=== PATIENT | female | born 1970 | race Caucasian/White ===

== ENCOUNTER 2020-07-02 09:37 | Outpatient (CLI) | payer OTHER, SELFPAY ==
--- NOTE | ~2020-07-02 | XR_ITS ---
EXAMINATION: XR chest 2V EXAM DATE: 07/02/2020 10:11 INDICATION: Generalized neck pain. Hypertension. TECHNIQUE: Frontal and lateral projections of the chest obtained and reviewed. Comparison is made to prior examination from 10/09/2016. FINDINGS: The lungs are clear. There are no pleural effusions. The cardiomediastinal silhouette is within normal limits. There is no pneumothorax suspected. The bones and soft tissues are unremarkab le. IMPRESSION: No acute cardiopulmonary findings. Reviewed, dictated and finalized at location B. ORATE GIVING MANAGER
--- NOTE | ~2020-07-02 | XR_ITS ---
EXAMINATION: XR_CERV2-3V_CR EXAM DATE: 07/02/2020 10:11 INDICATION: Neck pain. TECHNIQUE: Cervical spine frontal, lateral, lateral swimmers, and open-mouth odontoid projections. There is no prior study for comparison. FINDINGS: There is mild to moderate loss of the C5-6 disc height, mild at C4-5 and 6-7. There is mil d to moderate cervical facet and uncovertebral joint arthropathy. There is mild reversal of the andrea l cervical lordosis which may be positional or spasm. The odontoid process is intact. The lateral ma sses of C1 line up with C2. Prevertebral soft tissue and pre-dens space are within normal limits. IMPRESSION: 1. Mild to moderate cervical spondylosis. 2. Mild reversal normal cervical lordosis could indicate spasm. Reviewed, dictated and finalized at location B. TMENT MAINTENANCE MANAGER
[2020-07-02 09:49] LABS: Basophils Absolute Auto 0.03 K/mm3 (0.00-0.10); Basophils Percent Auto 0.4 % (0.0-1.0); Eosinophils Absolute Auto 0.07 K/mm3 (0.02-0.50); Hematocrit 45.4 % (35.0-49.0); Hemoglobin 15.3 g/dL (12.0-15.0); Immature Granulocyte Absolute 0.01 K/mm3 (0.00-0.00); Immature Granulocyte Percent A 0.1 % (0.0-0.0); Lymphocytes Absolute Auto 1.58 K/mm3 (1.10-4.50); Mean Corpuscular HGB Conc 33.7 g/dL (32.0-36.0); Mean Corpuscular Hemoglobin 33.7 pg (27.0-31.0); Mean Platelet Volume 10.8 fl (9.2-11.8); Monocytes Absolute Auto 0.55 K/mm3 (0.10-0.90); Neutrophils Absolute Auto 4.6 K/mm3 (1.7-7.2); Neutrophils Percent Auto 67.5 % (50.0-70.0); Platelet Count Result 197 K/mm3 (150-420); Red Blood Count 4.54 M/mm3 (4.20-5.40); Red Cell Distribution Width 12.9 % (11.6-14.4); White Blood Count 6.9 K/mm3 (4.8-10.8)
[2020-07-02 09:53] LABS: Add Urine Microscopic? YES; Bilirubin Urine Negative (Negative); Blood Urine 2+ (Negative); Color Urine Yellow (Yellow); Glucose Urine UA Negative (Negative); Ketones Urine Negative (Negative); Leukocyte Esterase Ur Negative (Negative); Nitrate Urine Positive (Negative); Protein Urine Negative (Negative); Specific Grav Ur >= 1.030 (1.010-1.020); Urobilinogen Urine 0.2 mg/dL (0.2-1.0)
[2020-07-02 09:58] LABS: Appearance Urine Other (Clear); Bacteria Urine 3+ /hpf; Squamous Epithelial Cell Urine Few /hpf (Few); WBC Urine 0-3 /hpf (0-3)
[2020-07-02 10:43] LABS: Alanine Aminotransferase 24 U/L (14-59); Albumin Level 3.6 g/dL (3.4-5.0); Alkaline Phosphatase 62 U/L (46-116); Anion Gap 8 mmol/L (8-16); Aspartate Amino Transferase 17 U/L (15-37); Bilirubin,Total 0.7 mg/dL (0.00-1.00); Blood Urea Nitrogen 15 mg/dL (7-18); Calcium 8.6 mg/dL (8.5-10.1); Carbon Dioxide 25 mmol/L (21-32); Chloride 107 mmol/L (98-108); Cholesterol 169 mg/dL (0-200); Estimated Glomerular Filt Rate > 60; Glucose 96 mg/dL (70-99); HDL Direct 54 mg/dL (40-60); LDL Cholesterol Calculated 103 mg/dL (<130); Osmolality Calculated 290 mOsm/kg (285-295); Potassium 4.2 mmol/L (3.5-5.1); Sodium 140 mmol/L (136-145); Total Protein 7.6 g/dL (6.4-8.2); Triglycerides 61 mg/dL (0-150)
== END 2020-07-02 09:38 | disposition home or self-care (01) ==
LOC: CHSLAB 09:41
PROVIDERS: PCP Internal Medicine; Visit Provider Internal Medicine
DX: M54.2 Cervicalgia (principal); I10 Essential (primary) hypertension
CPT/HCPCS: 36415; 71046; 72040; 80053; 80061; 81001; 84443; 85025

== ENCOUNTER 2020-07-04 12:21 | Emergency (ER) | payer OTHER, SELFPAY ==
[2020-07-04 12:21] VITALS: BP 168/94; PULSE 76; RESP 16; TEMP 36.3; O2SAT 98
--- NOTE | 2020-07-04 12:35 | ECG_ITS ---
Measurements Intervals [place] Rate: 67 P: 32 NE: 145 QRS: 2 QRSD: 75 T: 8 QT: 382 QTc: 406 Interpretive Statements SINUS RHYTHM LOW QRS VOLTAGE IN PRECORDIAL LEADS BASELINE ARTIFACT- I, II, AVR, AVF BORDERLINE ECG Electronically Signed On 07-06-2020 8:14:35 RN NEW GRAD by Luis Alves D.O.
[2020-07-04] MEDS: ALPRAZolam (*CRX) 0.5 MG TABLET PO (13:00)
[2020-07-04 13:02] LABS: Basophils Absolute Auto 0.06 K/mm3 (0.00-0.10); Basophils Percent Auto 0.9 % (0.0-1.0); Eosinophils Absolute Auto 0.05 K/mm3 (0.02-0.50); Eosinophils Percent Auto 0.8 % (1.0-6.0); Hematocrit 43.4 % (35.0-49.0); Hemoglobin 14.8 g/dL (12.0-15.0); Immature Granulocyte Absolute 0.02 K/mm3 (0.00-0.00); Immature Granulocyte Percent A 0.3 % (0.0-0.0); Lymphocytes Absolute Auto 1.58 K/mm3 (1.10-4.50); Lymphocytes Percent Auto 24.5 % (18.0-42.0); Mean Corpuscular HGB Conc 34.1 g/dL (32.0-36.0); Mean Corpuscular Hemoglobin 33.9 pg (27.0-31.0); Mean Corpuscular Volume 99.5 fL (78.0-102.0); Mean Platelet Volume 11.2 fl (9.2-11.8); Monocytes Absolute Auto 0.43 K/mm3 (0.10-0.90); Monocytes Percent Auto 6.7 % (2.0-11.0); Neutrophils Absolute Auto 4.3 K/mm3 (1.7-7.2); Neutrophils Percent Auto 66.8 % (50.0-70.0); Platelet Count Result 186 K/mm3 (150-420); Red Blood Count 4.36 M/mm3 (4.20-5.40); Red Cell Distribution Width 12.8 % (11.6-14.4); White Blood Count 6.5 K/mm3 (4.8-10.8)
--- NOTE | 2020-07-04 13:10 | ED.CHESTPAIN ---
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 The patient had a visit with her primary care physician and was started on a steroid tapering pack secondary to pain of her neck secondary to osteoarthritis. Patient was also started on verapamil for high blood pressure but did not take her blood pressure medication. Patient today presents with some chest tightness that is been off and on since earlier this morning with no shortness of breath no diaphoresis no nausea vomiting no radiation of her pain. MD complaint: chest discomfort Onset (ago): hour(s) Timing of current episode: episodic Prior episodes: No Onset: during rest Pain location: left chest Pain radiation: none Severity: mild Quality: tightness Exacerbating factors: stress Context: recent illness Related Data Allergies Allergy/AdvReac Type Severity Reaction Status Date / Time No Known Allergies Allergy Verified 07/04/20 12:35 Review of Systems Review of Systems: All systems reviewed & are unremarkable except as noted in HPI and below PMFSH Past Medical History Medical History HTN (hypertension) Exam Const: General: cooperative, healthy appearing, comfortable, no acute distress, well developed, alert, awake and Physically active HENMT: Head: normal to inspection Ears: hearing grossly normal bilaterally General nose exam: Normal external nose present Face and sinus: normal facial exam Mouth: Yes Normal oral and palatal mucosa present Teeth and gingiva: dentition normal Eyes: General: appearance normal, both eyes and all related structures Eyelids: eyelids normal Conjunctivae: conjunctivae normal Sclera: sclerae normal Neck: Neck: normal visual inspection, full ROM, no lymphadenopathy and no meningeal signs Chest: Chest palpation & inspection: normal inspection of the chest and normal palpation of entire chest wall Resp: Effort & Inspection: normal respiratory effort and able to speak in complete sentences Auscultation: clear to auscultation bilaterally Cardio: Jugular venous distension: no JVD Palpation: normal PMI Rate: regular rate Rhythm: regular rhythm Heart sounds: S1 normal heart sound present and S2 normal heart sound present GI: Inspection: normal to inspection Auscultation: normal bowel sounds Back/Spine/Pelvis: Back: no CVA tenderness Neuro: General: oriented to person, oriented to place, oriented to time, patient oriented x3, gait normal, tone normal and moves all extremities Psych: Appearance: grossly normal and well kempt Mental Status: mental status grossly normal Course Course Emergency Course: during assessment of patient patient says her pain in her chest has subsided and is completely gone patient did receive Xanax and anxiety has improved. Reviewed EKG and lab findings and everything came back within normal limits advised to follow-up with her primary care physician. Vital Signs Vital signs: Vital Signs Temperature 36.3 C L 07/04/20 12:21 Pulse Rate 76 07/04/20 12:21 Respiratory Rate 16 07/04/20 12:21 Blood Pressure 168/94 H 07/04/20 12:21 Pulse Oximetry 98 07/04/20 12:21 Temperature 36.3 C L 07/04/20 12:21 Pulse Rate 76 07/04/20 12:21 Respiratory Rate 16 07/04/20 12:21 Blood Pressure 168/94 H 07/04/20 12:21 Pulse Oximetry 98 07/04/20 12:21 MDM - Chest Pain Lab Data Result diagrams: 07/04/20 12:57 Labs: Lab Results 07/04/20 07/04/20 Range/Units 12:57 12:57 WBC 6.5 (4.8-10.8) K/mm3 RBC 4.36 (4.20-5.40) M/mm3 Hgb 14.8 (12.0-15.0) g/dL Hct 43.4 (35.0-49.0) % MCV 99.5 (78.0-102.0) f
[2020-07-04 13:18] LABS: Troponin I < 4.0 ng/L (0.00-60.4)
[2020-07-04 13:27] VITALS: BP 145/96; PULSE 80; RESP 14; O2SAT 100
== END 2020-07-04 13:30 | disposition home or self-care (01) ==
PROVIDERS: Emergency Provider Emergency Medicine; PCP Internal Medicine
DX: R07.89 Other chest pain (principal); F41.0 Panic disorder [episodic paroxysmal anxiety]
CPT/HCPCS: 36415; 84484; 85025; 93005; 99283; 99284; A9270

== ENCOUNTER 2020-07-06 14:04 | Outpatient (RCR) | payer OTHER, SELFPAY ==
--- NOTE | 2020-07-06 14:51 | PTOPEVAL ---
Thank you for referring Krista Adrian to [facility].? The patient is scheduled to be seen for therapy? __3__x/week for 12 visits. Please review, sign, date and return this plan of care DORINDA. I agree with and certify that the following plan of care is medically necessary. Referring Physician Date Admitting Provider: Attending Provider: Tiago Becker MD Referring Provider: *PT Outpatient Evaluation Start: 07/06/20 14:16 Freq: Status: Active Protocol: Document 07/06/20 14:16 LUIZ (Rec: 07/06/20 14:50 [email or web address]) Therapy Assessment Status Assessment Status Assessment Status Evaluation Outpatient Past Medical History Cardiovascular History Hx Hypertension Yes HEENT History Hx Tonsillectomy Yes Psychosocial History Hx Anxiety Yes: PANIC ATTACKS Evaluation Information Problem Diagnosis neck pain Onset 06/05/20 Subjective Information Pt. reports that she has Query Text:As Reported By Patient/ experienced on/off neck pain Family for years. She reports that her pain has worsened over the past month. She reports that she recieved a recent injection to relieve pain. She reports that she is also taking a dose pack with no relief. She states that pain is slightly improved. She states that sleep is difficult due to pain and cannot roll to the left side. She reports that she does get numbness into the left arm on occassion in relation to her neck pain. Prior Level of Function Activity Level (Last 3 Months) Occupation nursing tech Hand Dominance Right Activity of Daily Living Ability Independent Indoor/Home Mobility Independent Community Mobility Independent Stairs Ability Independent Functional Cognition (Planning, Shopping Independent , Taking Medications) Cooking Yes Cleaning Yes Laundry Yes Shopping Yes Driving Yes Pain Assessment Pain Scale Pain Scale Used Numeric (1 - 10) Self Report Pain Assessment Neck Reported Pain Level 4 Pain Description Aching,Numbness Pain Radiation Left Arm Pain Frequency Continuous Lowest Pain
--- NOTE | 2020-09-21 17:18 | PCPTNOTE ---
Pt. attended a total of 9 treatment sessions from 07/06/20 to 07/31/20. She has failed to return to the clinic and will be discharged from our care. Refer to pt. last daily note for discharge status. Jasvir Finley, MPT
== END 2020-07-31 09:14 | disposition home or self-care (01) ==
LOC: CHSPT 14:04
PROVIDERS: PCP Internal Medicine; Visit Provider Internal Medicine
DX: M54.2 Cervicalgia (principal)
CPT/HCPCS: 97012; 97014; 97110; 97140; 97161; G0283